=== PATIENT | female | born 1935 | race Caucasian/White ===

== ENCOUNTER 2017-04-05 18:11 | Emergency (ER) | payer MEDICARE ==
[~2017-04-05] VITALS: Ht 154.9 cm; Wt 43.1 kg
[~2017-04-05 18:11] MED LIST: ALEN70TA55 PO; ASPI81CH43 PO; CAR25T PO; DIPH2.5T73 PO; DONE10TA37 PO; FLUT100I IN; MEGE40TA15 PO; MELA3TAB14 PO; MEM5T PO; METO25TA5 PO; MULT1TAB95 PO; TIOTCAP INH; TRAZ100T2 PO; VITA100T3 PO
[2017-04-05 19:07] LABS: Basophils # (auto) 0 uL; Basophils % (auto) 0.4 % (0.0-2.0); Eosinophils # (auto) 0.2 uL; Eosinophils % (auto) 3.6 % (0.0-7.0); Hematocrit 37.9 % (36.0-46.0); Hemoglobin 12.4 g/dL (12.2-16.2); Lymphocytes # (auto) 0.9 uL; Lymphocytes % (auto) 17.7 % (10.0-50.0); Mean Corpuscular Hemoglobin 32.5 pg (28.0-32.0); Mean Corpuscular Hgb Conc. 32.9 g/dL (32.0-36.0); Mean Corpuscular Volume 98.7 fL (80.0-100.0); Mean Platelet Volume 7.7 fL (6.9-10.8); Monocytes # (auto) 0.5 uL; Monocytes % (auto) 9.2 % (0.0-12.0); Neutrophils # (auto) 3.5 uL; Neutrophils % (auto) 69.1 % (37.0-80.0); Nucleated Red Blood Cells % 0.1 %; Platelet Count (auto) 243 10^3/uL (140-450); Red Cell Distribution Width 13.4 % (11.8-14.3); White Blood Cell 5.1 10^3/uL (4.4-10.8)
[2017-04-05 19:09] LABS: Albumin 3.4 g/dL (3.4-5.0); BUN/Creatinine Ratio 14.6; Bilirubin, Total 0.4 mg/dL (0.2-1.0); Potassium 3.5 mmol/L (3.5-5.1); Total Protein 7.4 g/dL (6.4-8.2)
[2017-04-05 19:20] VITALS: BP 131/64
[2017-04-05 19:44] LABS: B-Type Natriuretic Peptide 44.68 pg/mL (0-100)
[2017-04-05 19:48] LABS: Temperature: 22.9 C (20.0-25.0)
[2017-04-05] MEDS: SODIUM CHLORIDE 0.9% 1,000 ML IV ONE (19:53)
[2017-04-05] MEDS: SODIUM CHLORIDE 0.9% 500 ML IV ONE (19:53)
[2017-04-05 20:15] LABS: Urine RBC None Seen /hpf (0 - 4)
[2017-04-05 20:33] LABS: Urine Bilirubin Negative (Negative); Urine Blood Negative /uL (Negative); Urine Color Yellow (Yellow); Urine Glucose Normal (Normal); Urine Ketone Negative (Negative); Urine Mucus FEW (None Seen); Urine Nitrite Negative (Negative); Urine Squamous Epithelial Cell FEW /hpf (<5); Urine Urobilinogen Normal (Negative)
== END 2017-04-05 22:24 | disposition home or self-care (01) ==
LOC: EDBD 18:11 → ER 18:16
DX: K57.30 Diverticulosis of large intestine without perforation or abscess without bleeding (principal); R19.7 Diarrhea, unspecified; I12.9 Hypertensive chronic kidney disease with stage 1 through stage 4 chronic kidney disease, or unspecified chronic kidney disease; N18.2 Chronic kidney disease, stage 2 (mild); J45.909 Unspecified asthma, uncomplicated; I25.2 Old myocardial infarction
CPT/HCPCS: 36415; 74176; 80053; 81001; 82150; 83605; 83690; 83880; 85025; 93005; 96360; 96361